=== PATIENT | female | born 1975 | race African-American/Black ===

== ENCOUNTER 2018-03-31 08:20 | Emergency (ER) | payer OTHER ==
[~2018-03-31] VITALS: Ht 167.6 cm; Wt 67.6 kg
[~2018-03-31 08:20] MED LIST: PRENCAP61 PO
[2018-03-31 08:31] VITALS: BP 111/52
== END 2018-03-31 09:14 | disposition home or self-care (01) ==
LOC: ER 08:25
DX: L72.3 Sebaceous cyst (principal); Z88.8 Allergy status to other drugs, medicaments and biological substances